=== PATIENT | female | born 1940 | race Caucasian/White ===

== ENCOUNTER → 2017-01-01 | Outpatient (CLI) | payer MEDICARE | LOC: KOH-I 13:33 | DX: M17.10 Unilateral primary osteoarthritis, unspecified knee (principal); M17.0 Bilateral primary osteoarthritis of knee | CPT/HCPCS: 73564 ==

== ENCOUNTER → 2020-06-19 | Outpatient (CLI) | payer MEDICARE, OTHER ==
[~2020-06-19] MED LIST: OMNICEF 300 MG300 MG PO; PERCOCET 5/325 T1 EA PO; PYRIDIUM200 MG PO; ZOFRAN ODT 4 MG4 MG PO
== END ==
LOC: KOH-I 15:47
DX: M25.531 Pain in right wrist (principal); M79.641 Pain in right hand
CPT/HCPCS: 73100; 73130

== ENCOUNTER → 2021-05-23 | Outpatient (CLI) | payer MEDICARE ==
[~2021-05-23] VITALS: Ht 160 cm; Wt 68.0 kg
== END ==
LOC: EROP 11:26 → EDSTATUS 11:26
DX: U07.1 COVID-19 (principal); Z23 Encounter for immunization; I12.9 Hypertensive chronic kidney disease with stage 1 through stage 4 chronic kidney disease, or unspecified chronic kidney disease; N18.9 Chronic kidney disease, unspecified
CPT/HCPCS: M0247; Q0247

== ENCOUNTER → 2021-12-31 | Outpatient (CLI) | payer MEDICARE | LOC: KOH-I 16:27 | DX: M54.42 Lumbago with sciatica, left side (principal); R10.2 Pelvic and perineal pain; M47.816 Spondylosis without myelopathy or radiculopathy, lumbar region; M47.818 Spondylosis without myelopathy or radiculopathy, sacral and sacrococcygeal region | CPT/HCPCS: 72100; 72220 ==